=== PATIENT | male | born 1970 | race Caucasian/White ===

== ENCOUNTER 2024-12-22 07:05 | Outpatient (CLI) | payer OTHER, SELFPAY ==
--- NOTE | ~2024-12-22 | XR_ITS ---
XR cervical spine 4-5V 12/22/2024 07:30 Indication: Cervicalgia. Chronic left neck pain Procedure: 5 views cervical spine including flexion/extension. Comparison: No prior studies for comparison. Findings: Normal cervical alignment. Vertebral body and disc heights are preserved. Odontoid process is normal. Lateral masses normally aligned. Lung apices are normal. No evidence for perched facet. Impression: 1: No significant abnormality of the cervical spine. Reviewed, dictated and finalized at location A. Impression: 1: No significant abnormality of the cervical spine.
--- OUTSIDE RECORDS SUMMARY | 2024-12-22 07:10 | XMS_ITS | Clinical Summary ---
Author Organization [facility] Address [address] [place] [address] Care Team Providers Care Hammer Runner Name Role Phone Nicolas Waters MD Primary Care Provider [phone] Social History Tobacco Use Types Packs/Day Years Used Date Smoking Tobacco: Never Assessed Sex and Gender Information Value Date Recorded Sex Assigned at Male 12/18/2024 11:21 AM CDT Legal Sex Male 11:19 AM CDT Gender Identity Not on file Sexual Orientation Not on file Plan of Treatment Upcoming Encounters Date Type Department Care Team (Late st Contact Info) Description 01/01/2025 8:15 AM CDT Appointment [facility] [address] [place] [address] Nicolas Waters MD [address] [place] [address] Health Maintenance Due Date Last Done Comments Colorectal Cancer Screening Colonoscopy (10 Years) 1971 Annual Physical 1974 Hepatitis C 1989 DTaP, Tdap and Td Vaccines ( 1 - Tdap) 1990 Hepatitis B Vaccines (1 of 3 - 19+ 3-dose series) 1990 Pneumococcal Vaccine: 50+ Ye ars (1 of 1 - PCV) 2021 Zoster Vaccines (1 of 2) 2021 COVID-19 Vaccine ( - 2023-2 5 season) 2024 Meningococcal B Vaccine Aged Out No l onger eligible based on patient's age to complete this topic Meningococcal Vaccine Aged Out No dre gisella eligible based on patient's age to complete this topic RSV Immunizations Under 20 Months Aged Out No longer eligible based on patient's age to complete this topic Care Teams Hammer Runner Relationship Specialty Start Date End Date Nicolas Waters MD [address] [place] [id number] PCP - General INTERNAL MEDICINE 12/18/24
== END 2024-12-22 07:06 | disposition home or self-care (01) ==
PROVIDERS: PCP Internal Medicine; Visit Provider Internal Medicine
DX: M54.2 Cervicalgia (principal)
CPT/HCPCS: 72050

== ENCOUNTER 2025-03-28 01:32 | Day surgery (SDC) | payer OTHER, SELFPAY ==
[2025-03-20 11:25] VITALS: BMI 25.1
--- OUTSIDE RECORDS SUMMARY | 2025-03-28 01:35 | XMS_ITS | Clinical Summary ---
Author Organization [facility] Address [address] [place] [id number] Care Team Providers Care Shank Pinner Name Role Phone Nicolas Ivy MD Primary Care Provider [phone] Encounters Date Type Department Care Team Description 01/01/2025 8:06 AM CDT - 01/01/2025 11:59 PM CDT Hospital Encounter [facility] [address] [place] [address] Nicolas Ivy MD Discharge Disposition: Home or Self Care (Routine Discharge) 01/01/2025 Travel from Last 3 Months Social History Tobacco Use Types Packs/Day Years Used Date Smoking Tobacco: Never Assessed Sex and Gender Information Value Date Recorded Sex Assigned at Male 12/18/2024 11:21 AM CDT Legal Sex Male 11:19 AM CDT Gender Identity Not on file Sexual Orientation Not on file Plan of Treatment Health Maintenance Due Date Last Done Comments Colorectal Cancer Screening Colonoscopy (10 Years) 1971 Annual Physical 1974 Hepatitis C 1989 DTaP, Tdap and Td Vaccines ( 1 - Tdap) 1990 Hepatitis B Vaccines (1 of 3 - 19+ 3-dose series) 1990 Pneumococcal Vaccine: 50+ Ye ars (1 of 1 - PCV) 2021 Zoster Vaccines (1 of 2) 2021 COVID-19 Vaccine ( - 2024-2 6 season) 2025 Influenza Adult (#1) 2025 Hepatitis A Vaccines Aged Out No long er eligible based on patient's age to complete this topic Meningococcal B Vaccine Aged Out No l onger eligible based on patient's age to complete this topic Meningococcal Vaccine Aged Out No dre gisella eligible based on patient's age to complete this topic RSV Immunizations Under 20 Months Aged Out No longer eligible based on patient's age to complete this topic Procedures Procedure Name Priority Date/Time Associated Diagnosis Comments CT HEART SCREEN CALCIUM SCORE PROMO Routine 01/01/2025 8:30 AM CDT Abnormal finding of blood chemistry, unspecified Family history of ischemic heart disease and other diseases of the circulatory system from Last 3 Months Results * CT HEART SCREEN CALCIUM SCORE PROMO (01/01/2025 8:30 AM CDT) Anatomical Region Laterality Modality Chest Computed Tomogra phy 01/01/2025 8:41 AM CDT Impressions 01/01/2025 8:42 AM CDT =====IMPRESSION:===== Total Score: 0 No plaque, very low risk, very unlikely for probability of significant CAD Ordered By: NICOLAS IVY Interpreted By: Gabriele Barrow MD, 01/01/2025 8:41 AM Narrative 01/01/2025 8:42 AM CDT [address] [address] EXAMINATION: Multislice Helical CT Coronary Calcium Scoring REASON FOR EXAM: Screening for heart disease COMPARISON: None TECHNIQUE: Multislice helical CT images of the proximal coronary arteries with a computer generated calcification score. A dose lowering technique was used for this procedure, which may include, but is not limited to, dose reduction technique, automated exposure control, iterative reconstruction, ALARA (As Low As Reasonably Achievable), or Image Gently techniques. Results: Left main: 0 LAD: 0 Circumflex: 0 Right coronary: 0 Total Score: 0 Comments: There is no mediastinal adenopathy, and there are no pulmonary nodules in the visualized portions of the chest. Calcium score guidelines: Total Score* Calcium Plaque Sims *Risk *Probability of significant CAD 0 No Plaque Very Low Very unlikely 1-10 Minimal Plaque Low Unlikely 11-100 Mild Plaque Moderate Low likelihood of significant stenosis <50% 101-400 Moderate Plaque Moderately High Moderate likelihood of significant stenosis (>50%) Over 400 Extensive Plaque High High likelihood of significant stenosis (>50%) The amount of coronary artery calcification correlates with the severity of coronary atherosclerosis and the probability of future significant event. Calcification is not site specific for stenosis and does not identify non-calcified atherosclerotic plaque, but rather indicates the extent of atherosclerosis in the coronary arteries overall. The score may be used as an indicator for risk factor modification or additional cardiac testing. Significant change in calcium score over time may be indicative of subsequent disease development or useful as a benchmark to assess preventative programs. Procedure Note Gabriele Barrow MD - 01/01/[address] [address] EXAMINATION: Multislice Helical CT Coronary Calcium Scoring REASON FOR EXAM: Screening for heart disease COMPARISON: None TECHNIQUE: Multislice helical CT images of the proximal coronary arterieswith a computer generated calcification score. A dose lowering techniquewas used for this procedure, which may include, but is not limited to,dose reduction technique, automated exposure control, iterativereconstruction, ALARA (As Low As Reasonably Achievable), or Image Gentlytechniques. Results: Left main: 0 LAD: 0 Circumflex: 0 Right coronary: 0 Total Score: 0 Comments: There is no mediastinal adenopathy, and there are no pulmonarynodules in the visualized portions of the chest. Calcium score guidelines: Total Score* Calcium Plaque Sims *Risk *Probability ofsignificant CAD 0 No Plaque Very LowVery unlikely 1-10 Minimal Plaque LowUnlikely 11-100 Mild Plaque ModerateLow likelihood of significant stenosis <50% 101-400 Moderate Plaque Moderately HighModerate likelihood of significant stenosis (>50%) Over 400 Extensive Plaque HighHigh likelihood of significant stenosis (>50%) The amount of coronary artery calcification correlates with the severityof coronary atherosclerosis and the probability of future significantevent. Calcification is not site specific for stenosis and does notidentify non-calcified atherosclerotic plaque, but rather indicates theextent of atherosclerosis in the coronary arteries overall. The score may be used as an indicator for risk factor modification oradditional cardiac testing. Significant change in calcium score over timemay be indicative of subsequent disease development or useful as abenchmark to assess preventative programs. =====IMPRESSION:===== Total Score: 0 No plaque, very low risk, very unlikely for probability ofsignificant CAD Ordered By: NICOLAS IVY Interpreted By: Gabriele Barrow MD, 01/01/2025 8:41 AM us Nicolas Ivy MD CT Final Result from Last 3 Months Insurance [facility] Care Teams Shank Pinner Relationship Specialty Start Date End Date Nicolas Ivy MD [address] [place] [id number] PCP - General INTERNAL MEDICINE 12/18/24
[2025-03-28 07:17] VITALS: BP 99/71; PULSE 52; RESP 18; TEMP 36.5; O2SAT 100; BMI 25.0
[2025-03-28] MEDS: LACTATED RINGERS 1,000 ML 150 ML IV CONT (07:27)
--- NOTE | 2025-03-28 07:55 | WPDANESEPPF ---
Anes - Initial Pre Proc Eval Procedure: Operation Date: 03/28/25 08:30 Proposed Procedures p Screening Colonoscopy - Niranjan Mae MD Date/Time: 03/28/25 07:55 Surgeon: Niranjan Mae MD Pre Op Diagnosis: positive cologuard/screening Patient Data Age: 55 Gender: M Height: 1.78 m Weight: 79.2 kg Last Vital Signs Temp 36.5 C 03/28/25 07:17 Pulse 52 L 03/28/25 07:17 Resp 18 03/28/25 07:17 BP 99/71 L 03/28/25 07:17 Pulse Ox 100 03/28/25 07:17 O2 Del Method Room Air 03/28/25 07:17 Allergies Allergy/AdvReac Type Severity Reaction Status Date / Time No Known Allergies Allergy Verified 03/28/25 07:15 Home Medications ?Medication ?Instructions ?Recorded ?Confirmed ?Type Circumin Elite 500 mg [facility] 12/15/24 01/31/25 History DHEA Plus [facility] 12/15/24 01/31/25 History Essential Aminos [facility] 12/15/24 01/31/25 History Micronized Creatine monohydrate [facility] 12/15/24 01/31/25 History ProOmega [facility] 12/15/24 01/31/25 History Testosterone Supplement [facility] 12/15/24 01/31/25 History Vitamin D3/ Vit K2 [facility] 12/15/24 01/31/25 History magnesium glycinate 120 mg (as mg PO 12/15/24 01/31/25 History glycinate) capsule Patient hx anesthesia problems: none Family hx anesthesia problems: none Results Review: All pre-operative results and documents have been reviewed as part of the pre-operative evaluation. [facility] Past Medical History Medical History Follow up BMI 25.0-25.9,adult Colon cancer screening On long-term drug therapy Prostate cancer screening Cervicalgia Encounter to establish care BMI 24.0-24.9, adult Other fatigue Surgical History Surgical History History of tonsillectomy and adenoidectomy Family History Family History Sibling Patient's sister is in good health Hyperthyroidism Mother Asthma Heart disease valvular Hypothyroidism (acquired) Father , @ 87 Malignant neoplasm of prostate Heart disease Hx Bypass @ 70-75. Pig valve placed. Had pacer. Atherosclerosis brain Other Malignant neoplasm of prostate Heart disease Social History Social History Smoking status: Former smoker Second hand tobacco smoke exposure: No Alcohol intake: current Substance use: never Do You Feel Safe in your Home?: Yes Lack of Transportation: No Lack of Food: Never True Current Housing: I Have Housing Concerned About Future Housing: No Difficulty Paying Gas/Electric Bills: No Difficulty Paying for Meds: No Currently Unemployed: No Difficulty w/ Childcare or Family Care: No Living arrangements: with family Occupation/Education: occupation Gender identity (if verbalized by the patient): Male Anes - Eval Final PreProcedure Day of Procedure 03/28/25 07:55 Patient weight: normal Heart: regular rate and rhythm Lungs: clear to auscultation Airway: Mallampati scale class II Neurological: alert and oriented Last oral intake: >/= 8 hours ASA classification: II Emergent: no Anesthetic plan: proceed Anesthesia type and monitoring: general GIVS and standard monitoring Results Review: All pre-operative results and documents have been reviewed as part of the pre-operative evaluation. Informed Consent: The patient's anesthetic plan and its attendant risks and benefits were discussed with the patient/family/POA. Questions were solicited and answers provided to the satisfaction of the patient/family/POA.
--- NOTE | 2025-03-28 09:02 | PM.HPGS ---
History of Present Illness History of Present Illness Consent: Risks, benefits, and alternatives have been discussed and questions answered. Patient agrees to proceed with procedure. Chief complaint: positive cologuard/screening Narrative: Joe Hill is a 55 year old male here for first colonoscopy, + cologuard Review of Systems Review of Systems: All systems reviewed & are unremarkable except as noted in HPI and below PMFSH Past Medical History Medical History Follow up BMI 25.0-25.9,adult Colon cancer screening On halfway drug therapy Prostate cancer screening Cervicalgia Encounter to establish care BMI 24.0-24.9, adult Other fatigue Surgical History Surgical History History of tonsillectomy and adenoidectomy Family History Family History Sibling Patient's sister is in good health Hyperthyroidism Mother Asthma Heart disease valvular Hypothyroidism (acquired) Father , @ 87 Malignant neoplasm of prostate Heart disease Hx Bypass @ 70-75. Pig valve placed. Had pacer. Atherosclerosis brain Other Malignant neoplasm of prostate Heart disease Social History Social History Smoking status: Former smoker Second hand tobacco smoke exposure: No Alcohol intake: current Substance use: never Do You Feel Safe in your Home?: Yes Lack of Transportation: No Lack of Food: Never True Current Housing: I Have Housing Concerned About Future Housing: No Difficulty Paying Gas/Electric Bills: No Difficulty Paying for Meds: No Currently Unemployed: No Difficulty w/ Childcare or Family Care: No Living arrangements: with family Occupation/Education: occupation Gender identity (if verbalized by the patient): Male Meds Home Medications and Allergies Home Medications ?Medication ?Instructions ?Recorded ?Confirmed ?Type Circumin Elite 500 mg [facility] 12/15/24 01/31/25 History DHEA Plus [facility] 12/15/24 01/31/25 History Essential Aminos [facility] 12/15/24 01/31/25 History Micronized Creatine monohydrate [facility] 12/15/24 01/31/25 History ProOmega [facility] 12/15/24 01/31/25 History Testosterone Supplement [facility] 12/15/24 01/31/25 History Vitamin D3/ Vit K2 [facility] 12/15/24 01/31/25 History magnesium glycinate 120 mg (as mg PO 12/15/24 01/31/25 History glycinate) capsule Allergies Allergy/AdvReac Type Severity Reaction Status Date / Time No Known Allergies Allergy Verified 03/28/25 07:15 Vital Signs Vital Signs - 24 hr 03/28/25 07:17 Temperature 97.7 F Pulse Rate 52 L Respiratory Rate 18 Blood Pressure 99/71 L Pulse Oximetry 100 Oxygen Delivery Room Air Exam Const: General: comfortable and no acute distress HENMT: Face/Nose/Sinus: Normal nares present Eyes: General: appearance normal, both eyes and all related structures Neck: Neck: no JVD Resp: Auscultation: clear to auscultation bilaterally Cardio: Rate: regular rate Rhythm: regular rhythm GI: Inspection: non-distended GI Palp: Yes Soft to palpation Skin: General skin exam: normal color Extrem: General: normal to inspection Psych: Mental Status: mental status grossly normal Assessment and Plan Assessment and plan (1) Positive colorectal cancer screening using Cologuard test: Code(s): R19.5 - Other fecal abnormalities Status: Acute Assessment and Plan: colonoscopy
--- NOTE | 2025-03-28 09:27 | S_PTH ---
PATIENT: Joe Hill LOC: [facility]#:[id number] AGE/SX: 55/M ROOM: RE03/28/[address]: Niranjan Mae MD : 1970 BED: DIS: 03/28/2025 SPEC #: [id number] RECD: 03/28/25 10:31 STATUS: FÁTIMA RENisreen #: [id number] GRAZYNA: 03/28/25 09:[address]: Niranjan Mae DEPT: [facility] Surgical RECD BY: Marina Rasheed ENTERED: 03/28/25 10:32 SP TYPE: Surgical OTHR DR: Nicolas Waters MD Tissues: A - Colon Polypectomy B - Colon Polypectomy Procedures: Hematoxylin and Eosin Stain Gross and Microscopic Level 4
[2025-03-28 09:28] VITALS: BP 98/50; PULSE 53; RESP 18; O2SAT 100
[2025-03-28 09:38] VITALS: BP 95/55; PULSE 54; RESP 18; O2SAT 100
[2025-03-28 09:48] VITALS: BP 100/65; PULSE 57; RESP 18; O2SAT 100
== END 2025-03-28 10:04 | disposition home or self-care (01) ==
PROVIDERS: PCP Internal Medicine; Referring Provider Internal Medicine; Visit Provider Internal Medicine Gastroenterology
PROC: 0DJD8ZZ Inspection of Lower Intestinal Tract, Via Natural or Artificial Opening Endoscopic (ICD-10-PCS; CPT 45378; principal; 2025-03-28 08:30)
DX: R19.5 Other fecal abnormalities (principal); D12.5 Benign neoplasm of sigmoid colon; K62.1 Rectal polyp; K64.8 Other hemorrhoids; R53.83 Other fatigue; Z79.899 Other long term (current) drug therapy; Z98.890 Other specified postprocedural states; Z87.891 Personal history of nicotine dependence; Z80.49 Family history of malignant neoplasm of other genital organs; Z82.49 Family history of ischemic heart disease and other diseases of the circulatory system
CPT/HCPCS: 45380; 45385; 88305; J2003; J2704; J7120